=== PATIENT | male | born 1975 | race Caucasian/White ===

== ENCOUNTER 2017-11-24 11:22 | Emergency (ER) | payer SELFPAY ==
[2017-11-24 11:56] LABS: Bilirubin Negative (Negative); Blood, Urine Large (Negative); Clarity Cloudy (Clear); Glucose, Urine (Dipstick) Negative (Negative); Leukocyte Negative (Negative); Nitrite Positive (Negative); Protein, Urine (Dipstick) 30 mg/dL (Neg-Trace); Specific Gravity, Urine 1.025 (1.005-1.030); Urobilinogen 0.2 mg/dL (0.2-1.0); pH, Urine 6.5 (5.0-9.0)
[2017-11-24 12:07] LABS: Bacteria/HPF 1+ HPF (None Seen); RBC/HPF GREATER THAN 50-TNTC HPF (0-3); Squamous Epithelial 0-3 HPF (0-3); WBC/HPF 0-3 HPF (0-3)
[2017-11-24] MEDS ORDERED: Ketorolac Tromethamine 30 MG/ML VIAL ONE (12:31)
--- NOTE | 2017-11-24 19:58 | CT ---
CT OF THE ABDOMEN AND PELVIS WITHOUT CONTRAST 11/24/[address] of the abdomen and pelvis was performed for evaluation of abdominal pain and hematuria. Axi al slices were acquired. Then coronal reconstructions were done. The lung bases are clear. The liver is mildly to moderately enlarged and shows diffuse fatty infiltra tion. No focal hepatic lesion was seen. There are no dilated ducts. No stones were seen in the gallbl adder. The pancreas was unremarkable. The aorta is normal in size. Regarding the kidneys, there was no mass, renal calculi or hydronephrosis. The right ureter, however, is slightly larger than the left all the way down to the bladder. A small calcification deep in the pelvis on the right side does not appear to be within the ureter. Thus I cannot confirm any ureteral calculi at the moment. There is a 3.3 x 2.5 cm right adrenal mass. Its CT numbers measure -1 unit. These findings make the p robability of this being an adenoma quite high. The left adrenal gland was unremarkable. The bowel is nondistended with no sign of obstruction. There is no evidence of inflammatory change ar ound bowel or bowel wall thickening. The appendix appears normal. CT of the pelvis shows no pelvic masses, fluid collections or inflammatory changes. IMPRESSION: 1. Right ureter is somewhat larger than left but no clear ureteral calculi. 2. Hepatic enlargement with diffuse fatty infiltration of the liver. 3. 3+ cm right adrenal mass with characteristics fairly classic for an adenoma. Results discussed with Dr. Henderson at 1250 on 11/24/17. Code CR POS: HOME
== END 2017-11-24 12:49 | disposition home or self-care (01) ==
LOC: BURERS 11:22
DX: N23 Unspecified renal colic (principal); R31.9 Hematuria, unspecified; I10 Essential (primary) hypertension; F17.210 Nicotine dependence, cigarettes, uncomplicated
CPT/HCPCS: 74176; 81003; 81015; 96372; J1885